=== PATIENT | male | born 1975 | race Caucasian/White ===

== ENCOUNTER 2017-03-16 14:13 | Emergency (ER) | payer MEDICAID ==
[~2017-03-16] VITALS: Ht 172.7 cm; Wt 80.0 kg
[~2017-03-16 14:13] MED LIST: FERR324T4; LORT5TAB; MVI; PHEN60TA; STOO100C
--- NOTE | 2017-03-16 14:17 | PD ---
Physical Exam Time Seen by Provider: 14:16 Narrative 42 y/o male with L 3rd fingertip amputation after slamming a door on his finger. seen at triage desk. Awaiting bed placement. [facility] Medical Record Reviewed: Yes Supervised Visit with BURT: Les Johnston Mar 16, 2017 14:17
[2017-03-16 14:23] VITALS: BP 112/68; PULSE 70; RESP 18; O2SAT 98
[2017-03-16] MEDS ORDERED: LIDOCAINE HCL 1% 50 ML VIAL INFIL ONE (14:30)
[2017-03-16] MEDS ORDERED: TETANUS/DIPHTHERIA TOXOID ADULT 0.5 ML VIAL IM ONE (14:30)
[2017-03-16] MEDS ORDERED: BUPIVACAINE HCL PF 0.5% 10 ML VIAL INFIL ONE (14:30)
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
--- NOTE | 2017-03-16 15:10 | RADRPT ---
EXAM DATE/TIME: 03/16/2017 14:47 [facility] COMPARISON: No previous studies available for comparison. INDICATIONS : Left distal 3rd finger laceration and pain. Patient slammed his left middle finger in a car door tod ay. MEDICAL HISTORY : None. SURGICAL HISTORY : None. ENCOUNTER: Initial ACUITY: 1 day PAIN SCORE: 10/10 LOCATION: Left distal 3rd digit. FINDINGS: There is a fracture through the terminal tuft distal phalanx third finger with overlying soft tissue injury. No other fractures identified. CONCLUSION: 1. Mildly displaced fracture through terminal tuft left third finger. Dedrick Carrasco MD on March 16, 2017 at 15:07 Board Certified Radiologist. This report was verified electronically.
[2017-03-16] MEDS ORDERED: PIPERACIL-TAZO 3.375 GM PREMIX 50 ML IV ONE (15:45)
[2017-03-16 16:57] VITALS: BP 113/63; PULSE 62; RESP 16; O2SAT 98
--- NOTE | 2017-03-16 17:15 | PD.OP ---
Operative Report Preoperative Diagnosis: (1) traumatic amputation left middle finger tip Postoperative Diagnosis: (1) traumatic amputation left middle finger tip Procedure: revision amputation and coverage of exposed distal phalanx with soft tissue left middle finger Surgeon: Jose Enrique Love Oxygen Equipment Technician(s): turner Operation and Findings: volar oblique amputation with exposed distal phalanx tuft left middle finger tip. Jose Enrique Love MD Mar 16, 2017 17:15
[2017-03-16] MEDS ORDERED: CEPH-460 PO (17:28)
[2017-03-16] MEDS ORDERED: HYDR-3533 PO (17:28)
--- NOTE | 2017-03-16 18:30 | MB ---
cc: ELISHA NELSON DATE OF CONSULTATION 03/16/17 REASON FOR CONSULTATION Left middle finger amputation. HISTORY OF PRESENT ILLNESS The patient is a 42-year-old right-hand dominant male who presented to the ED with complaints of injury to the left middle finger. The patient states he slammed his finger in a car door and amputated the tip of the left middle finger. The patient put the amputated part over the left middle finger and presented to the ED. He complains of pain and bleeding. The patient has otherwise no other injuries. PAST MEDICAL/SURGICAL HISTORY Not significant. PHYSICAL EXAMINATION The patient is alert, oriented x3. Examination of left middle finger reveals volar oblique amputation involving the hyponychium and the distal part of the pulp. The laceration extends from the distal half of the pulp in a volar oblique fashion to the hyponychium at the junction of the hyponychium and the nail plate. The amputated part appears to be nonviable. Evidence of bleeding from the region noted. There is also evidence of exposed distal phalanx over the region. Surrounding foreign body material also noted. The patient is able to flex and extend the middle finger DIP and PIP joints. X-rays of the left middle finger was reviewed, shows amputation through the distal tuft of the middle finger. There is evidence of soft tissue defect. The amputated part is over the amputated tip with part of the distal tuft within the amputated part. ASSESSMENT A 42-year-old male with volar oblique partial traumatic amputation with exposed distal phalanx left middle finger. PLAN Treatment options were discussed with the patient including revision amputation and closure of the exposed bone versus thenar flap. Risk and benefits of each was explained to the patient. After lengthy discussion, decision was made to proceed with revision amputation with closure of the exposed distal phalanx. Operative report will be dictated in the op report. The distal phalanx tip was rongeured and the soft tissue coverage was provided by mobilizing surrounding soft tissue to cover the exposed distal phalanx. Xeroform bacitracin dressing applied. The patient can be discharged home on p.o. antibiotics. I will see him in two days time for a dressing change. He has been advised regarding limb elevation. MD GUMARO Piña /5:06 PM /6:14 PM MTDD
--- NOTE | 2017-03-16 20:50 | MP ---
cc: JOSE ENRIQUE NELSON DATE OF SURGERY 03/16/17 PREOPERATIVE DIAGNOSIS Volar oblique amputation left middle fingertip POSTOPERATIVE DIAGNOSIS Volar oblique amputation left middle finger tip PROCEDURE Revision amputation and coverage of exposed distal phalanx with soft tissue left middle finger. SURGEON Dr. Hanane Nelson ANESTHESIA Local ESTIMATED BLOOD LOSS Minimal TOURNIQUET TIME About 15 minutes. INDICATIONS The patient is a 42-year-old male who presented to the ED with slamming his left middle finger in a car door resulting in amputation of the thumb nail tip. He had volar oblique amputation with exposed distal phalanx. The distal hyponychium had a piece of distal phalanx within it. X-ray showed fracture through the distal phalanx tip. Because of the exposed bone, he was given the option of revision amputation and coverage of bone versus thenar flap. The patient consented for revision amputation and closure of the exposed bone. Risk and benefits of the procedure was explained to the patient. This was done as a bedside procedure. The finger was thoroughly prepped and draped. A finger tourniquet was applied. Thorough wash was given with normal saline.Using a rongeur, the distal phalanx tip was rongeured and the soft tissue was mobilized and anchored to the dorsal aspect using multiple 5-0 Vicryl stitches covering the bone. Tourniquet was removed. Total tourniquet time was 15 minutes. He had good distal circulation after removal of finger cot tourniquet. Xeroform bacitracin dressing applied. Finger dressing was applied which was held in place by a Christiano. The patient will be discharged home on p.o. antibiotics. I will see him in two days' time for a dressing change. Jose Enrique Nelson MD SE/ /5:10 PM /8:39 PM [facility]ACE
== END 2017-03-16 18:00 | disposition home or self-care (01) ==
LOC: NEPD 14:13
DX: S68.123A Partial traumatic metacarpophalangeal amputation of left middle finger, initial encounter (principal); R56.9 Unspecified convulsions; F17.200 Nicotine dependence, unspecified, uncomplicated; W23.0XXA Caught, crushed, jammed, or pinched between moving objects, initial encounter; Y92.810 Car as the place of occurrence of the external cause
CPT/HCPCS: 11012; 12001; 73140; 96365; 99284; J2543; 90471